=== PATIENT | female | born 1960 | race Two or more races ===

== ENCOUNTER 2022-11-08 08:04 | Outpatient (RCR) | payer OTHER, SELFPAY | END 2022-12-26 16:00 | disposition home or self-care (01) | LOC: HO.WCC 08:04 | PROVIDERS: PCP Internal Medicine; Visit Provider Physician Assistant | DX: S80.212A Abrasion, left knee, initial encounter (principal); Q82.0 Hereditary lymphedema; I10 Essential (primary) hypertension; Z79.2 Long term (current) use of antibiotics; Z87.891 Personal history of nicotine dependence | CPT/HCPCS: 11042; 97597; 97598; 99212 ==